=== PATIENT | female | born 1955 | race Caucasian/White ===

== ENCOUNTER 2024-12-28 11:00 | Outpatient (RCR) | payer MEDICARE, OTHER, SELFPAY | END 2024-12-28 13:14 | disposition home or self-care (01) | LOC: HO.PT 11:00 | PROVIDERS: PCP Physician Assistant Medical; Visit Provider Physician Assistant Medical | DX: S03.03XD Dislocation of jaw, bilateral, subsequent encounter (principal) | CPT/HCPCS: 97110; 97140; 97161 ==